=== PATIENT | male | born 1935 | race Caucasian/White ===

== ENCOUNTER 2017-12-03 10:21 | Outpatient (CLI) | payer MEDICARE ==
--- NOTE | 2017-12-03 16:03 | PET ---
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 COMPARISON: None. CORRELATION: Neck/chest CT performed at [facility] on 11/13/17. TECHNIQUE: PET scanning with CT attenuation correction is performed from the skull vertex to the proximal thighs following the intravenous administration of 12.2 mCi [id number]. FINDINGS: HEAD/NECK: There is increased FDV avidity involving the right parotid gland with a maximum SUV of 9.3. There is mild FDG avidity involving an enlarged left Level II lymph node with a maximum SUV of 2.7. There is n o significant FDG avidity involving a right neck lymph node identified on recent CT. This lymph node is a Level II lymph node and has a maximum SUV of 2.4. Remaining additional soft tissue neck lymph no bryn are unremarkable. CHEST: No abnormal FDG localization. ABDOMEN/PELVIS: No abnormal FDG localization. OSSEOUS STRUCTURES: No abnormal FDG localization. IMPRESSION: 1. FDG avidity involving the right parotid gland compatible with a primary neoplasm involving the pa rotid gland. Additional FDG avidity involving right Level II and left Level II lymph nodes as describ ed above. These lymph nodes correspond to the finding on previous CT. 2. No FDG avidity with regards to the right lung parenchymal nodules described on previous CT. Note, the size of the nodules is below the imaging threshold criteria for PET imaging. Short-term follow-u p CT may be beneficial. POS: DONTAE
== END 2017-12-03 10:22 | disposition home or self-care (01) ==
LOC: PET 10:21
PROVIDERS: ATTEND Radiology Radiation Oncology
DX: C07 Malignant neoplasm of parotid gland (principal)
CPT/HCPCS: 78815; A9552

== ENCOUNTER 2018-03-26 09:58 | Outpatient (CLI) | payer MEDICARE ==
--- NOTE | 2018-03-26 12:38 | CT ---
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 FINDINGS: There is symmetric increased density of the bilateral submandibular glands. There is interspersed ret icular nodular increased density of the right parotid gland at site of prior fullness related to hype rmetabolic mass. No discrete residual mass identified within the right parotid gland. The left paroti d gland demonstrates a small, subcentimeter hyperdensity of the left parotid gland which is too small to further characterize although it is grossly stable. There is no discrete mass of the aerodigestiv e tract. No pathologic enlargement of the regional lymph nodes. There is mild wall prominence of the traversing carotid arteries and slight calcification. Thyroid gland is small in volume with a punctat e hypodensity in the left thyroid lobe. No mass within the imaged lung apices. There is a mild right mastoid effusion. IMPRESSION: No discrete mass or pathologically enlarged lymph nodes. POS: DONTAE
[2018-03-26] MEDS ORDERED: ISOVUE-370 76%-LOCM 1 ML ONE (16:07)
== END 2018-03-26 09:59 | disposition home or self-care (01) ==
LOC: BICCT 09:58
PROVIDERS: ATTEND Radiology Radiation Oncology
DX: C07 Malignant neoplasm of parotid gland (principal)
CPT/HCPCS: 70491; 82565

== ENCOUNTER 2019-07-21 09:05 | Outpatient (CLI) | payer MEDICARE ==
--- NOTE | 2019-07-21 12:00 | CT ---
CT NECK SOFT TISSUES WITH CONTRAST: Date: 07/21/2019 HISTORY: 84-year-old male with ICD-10: R22.1 localized swelling, mass and lump, neck. Midline neck mass (hist ory of right parotid squamous cell carcinoma with history of radiation therapy). Z08 encounter for fo llow-up examination after completed treatment for malignant neoplasm, right. 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 COMPARISON: CT of 03/26/2018. FINDINGS: There is an approximately 3 x 2.5 x 2.5 cm mass in the anterior soft tissues of the neck, centered sl ightly to the right of midline, centered at the thyrohyoid membrane. It contains two cystic component s. The posterior component, which encroaches upon the preepiglottic fat, measures approximately 1.5 x 1 x 2.5 cm. It is partially by septation from the anterior cystic component which measures 2.5 x 1.5 x 2.5 cm. Both cystic contents have increased fluid attenuation, approximately 30 HU. The anterior component is inseparable from the strap muscles. In retrospect, there was a much smaller les ion in this location previously. There is increased enhancement symmetrically of the bilateral submandibular glands consistent with po st radiation changes, but less strongly than on the previous CT. No discrete mass identified in the left parotid gland. In the right parotid gland, there is nonspecific, ill-defined strip of soft tissue density material f aintly and anteriorly in the superficial lobe, which is difficult to measure because of its amorphous shape. It is roughly 0.5 x 1.5 x 2.5 cm. It is uncertain whether this represents normal parotid tiss ue surrounded by more fatty atrophic parotid tissue, scar, or recurrent neoplasm. Mild fat stranding in the right carotid space, similar to prior study, probably represents postradiat ion changes. Mild mucosal thickening and enhancement of pharyngeal mucosal space, including of the larynx, also co nsistent with post radiation changes. No cervical lymphadenopathy. Cervical spondylosis noted. No destructive osseous lesion. No other path ology identified involving parapharyngeal, president celebrity acquistion, posterior cervical, or retropharyngeal spaces. No suspicious pulmonary nodule or mass at lung apices. No destructive osseous lesion. IMPRESSION: 1. 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 2. Nonspecific ill-defined, faint soft tissue changes in the superficial lobe of the right parotid g land. Differential diagnosis given above. PET scan may be useful. POS: CET
[2019-07-21] MEDS ORDERED: Iopamidol 370 76% 100 ML VIAL ONE (13:58)
== END 2019-07-21 09:06 | disposition home or self-care (01) ==
LOC: CT 09:05
PROVIDERS: ATTEND Otolaryngology Plastic Surgery within the Head & Neck
DX: Z08 Encounter for follow-up examination after completed treatment for malignant neoplasm (principal); R22.1 Localized swelling, mass and lump, neck; Z85.858 Personal history of malignant neoplasm of other endocrine glands; Q89.2 Congenital malformations of other endocrine glands
CPT/HCPCS: 70491; 82565; Q9967